=== PATIENT | female | born 1960 | race Caucasian/White ===

== ENCOUNTER 2020-07-01 08:00 | Outpatient (CLI) | payer BC ==
--- NOTE | 2020-07-01 10:43 | XRAY Report ---
PROCEDURE: Finger(s) RT INDICATIONS: PAIN IN FINGER OF RIGHT HAND TECHNIQUE: AP hand, 2 views of the fifth finger(s) acquired. COMPARISON: None FINDINGS: Bones: No fractures or dislocations. No suspicious bony lesions. Soft tissues: No suspicious soft tissue calcifications. IMPRESSION: No fifth finger fracture or dislocation. No bony erosive changes. No gross soft tissue abnormality. Reviewed by: Adonis Zacarias MD on 07/01/2020 10:42 AM [facility] Approved by: Adonis Zacarias MD on 07/01/2020 10:42 AM [facility] Station ID: [id number]
== END 2020-07-01 23:59 | disposition home or self-care (01) ==
LOC: DI.S 08:00
PROVIDERS: ATTEND Physician Assistant Medical
DX: M79.644 Pain in right finger(s) (principal)

== ENCOUNTER 2020-07-15 13:45 | Outpatient (CLI) | payer BC, OTHER ==
--- NOTE | 2020-07-15 15:57 | XRAY Report ---
PROCEDURE: Finger(s) RT INDICATIONS: PAIN IN FINGER RIGHT HAND TECHNIQUE: AP hand, 3 views of the the finger(s) acquired. COMPARISON: None FINDINGS: Bones: No fractures or dislocations. No suspicious bony lesions. Soft tissues: No suspicious soft tissue calcifications. IMPRESSION: No visualized acute fracture or dislocation. However, occult injury cannot be excluded. Recommend lux rt interval imaging follow-up in 7-10 days as clinically indicated for additional evaluation. Reviewed by: Kristin Grande MD on 07/15/2020 3:56 PM PDT Approved by: Kristin Grande MD on 07/15/2020 3:56 PM PDT Station ID: [id number]
== END 2020-07-15 23:59 | disposition home or self-care (01) ==
LOC: DI.S 13:45
PROVIDERS: ATTEND Physician Assistant
DX: M79.644 Pain in right finger(s) (principal)

== ENCOUNTER 2020-10-11 14:02 | Outpatient (CLI) | payer OTHER | END 2020-10-11 14:03 | disposition home or self-care (01) | LOC: LAB.S 14:02 | PROVIDERS: ATTEND Obstetrics & Gynecology | DX: Z01.84 Encounter for antibody response examination (principal) | CPT/HCPCS: 36415; 86769 ==

== ENCOUNTER 2021-08-28 14:18 | Outpatient (CLI) | payer OTHER ==
--- NOTE | 2021-08-28 16:45 | DEXA Report ---
PROCEDURE: Dexa Spine and/or Hip INDICATIONS: OSTEOPOROSIS SCREENING TECHNIQUE: Dual energy x-ray absorptiometry (DXA) was performed on a [employer] System. Regions measur ed are the AP Spine, femoral neck, and if needed forearm. COMPARISON: None. FINDINGS: Lumbar Spine: Bone Mineral Density 1.215 g/cm/cm,T score 0.3, normal Left Hip: Bone Mineral Density 1.030 g/cm/cm,T score 0.2, normal Left Femoral Neck: Bone Mineral Density 0.909 g/cm/cm, T score -0.9, normal (T score greater or equal to -1.0: NORMAL) (T score from -1.1 to -2.4: OSTEOPENIA) (T score less than or equal to -2.5 to: OSTEOPOROSIS) Impression: Normal bone mineral density Patients with diagnosis of osteoporosis or osteopenia should have regular bone mineral density assess ment. For those eligible for Medicare, routine testing is allowed once every 2 years. Testing frequ ency can be increased for patients who have rapidly progressing disease or for those who are receivin g medical therapy to restore bone mass. Reviewed by: Wilfrido Mckeon on 08/28/2021 4:44 PM PDT Approved by: Wilfrido Mckeon on 08/28/2021 4:44 PM PDT Station ID: [id number]
== END 2021-08-28 14:19 | disposition home or self-care (01) ==
LOC: DI 14:18
PROVIDERS: ATTEND Obstetrics & Gynecology
DX: Z13.820 Encounter for screening for osteoporosis (principal); Z79.890 Hormone replacement therapy; Z78.0 Asymptomatic menopausal state

== ENCOUNTER 2021-09-06 14:06 | Outpatient (CLI) | payer OTHER ==
--- NOTE | 2021-09-18 11:45 | Mammography Report ---
BILATERAL DIGITAL SCREENING MAMMOGRAM 3D/2D WITH EXAGGERATED CC: 09/06/2021 CLINICAL: Routine screening. Comparison is made to exams dated: 09/30/2019 mammogram, 07/11/2017 mammogram, 10/15/2014 mammogram, and 02/23/2013 mammogram - [facility]. The tissue of both breasts is heterogeneously dense . This may lower the sensitivity of mammography. No significant masses, calcifications, or other findings are seen in either breast. There has been no significant interval change. IMPRESSION: NEGATIVE There is no mammographic evidence of malignancy. A 1 year screening mammogram is recommended. This exam was interpreted at Station ID: [id number]. NOTE: For mammograms, a report in lay terms will be sent to the patient. Approximately 15% of breast malignancies will not be visualized mammographically. In the management of a palpable breast mass, a negative mammogram must not discourage biopsy of a clinically suspicious lesion. Electronically Signed By: Sampson Fitzgerald M.D. aty/penrad:09/15/2021 07:51:31 ACR BI-RADS Category 1: Negative 3341F PARENCHYMAL PATTERN: (D) - The breast(s) demonstrate(s) heterogeneously dense fibroglandular liban hennessy. BI-RADS CATEGORY: (1) - 1 RECOMMENDATION: (ANNUAL) - Recommend routine annual screening mammography. [id number] 1 year screening LATERALITY: (B)
== END 2021-09-06 14:07 | disposition home or self-care (01) ==
LOC: DI.S 14:06
DX: Z12.31 Encounter for screening mammogram for malignant neoplasm of breast (principal)

== ENCOUNTER 2022-08-27 19:51 | Emergency (ER) | payer OTHER ==
--- NOTE | 2022-08-27 21:43 | ED Physician Documentation ---
History of Present Illness - Stated complaint Stated Complaint: HIGH BLOOD PRESSURE - Chief complaint Chief Complaint: General - History obtained from History obtained from: Patient - Additonal information Additional information: HPI from patient. Patient says she woke up this morning with "red spot in my eye" (per patient), right eye. Denies trauma, denies pain, denies visual changes. Because she was not having any symptoms, she did not worry about this initially, but later in the day, she looked up possible causes of this on the internet and found that high blood pressure was amongst the causes. Thus, she began taking her blood pressure with a home BP cuff and had readings staring in 150s SBP, eventually increasing to 180s and tonight 200s range. She says her SBP tends to run 140s at its highest and so today's/tonight's blood pressure readings alarmed her. She became increasingly worried about health risks related to hypertension, specifically stroke (has family history) and thus decided to come to ED for evaluation. Patient says that her friend came to the house this evening to help assess the situation and told patient to mention that patient drinks alcohol on a regular basis. Patient has no h/o high blood pressure. She says she used to measure her blood pressure until approximately 2-3 months ago. Patient denies ACEVEDO, weakness, numbness, chest pain, dyspnea. HPI and ROS indicate that patient is asymptomatic Review of Systems Eyes: denies: Loss of vision, Decreased vision GI: reports: Nausea Neurologic: reports: Reviewed and negative PD PAST MEDICAL HISTORY - Past Medical History Past Medical History: No - Present Medications Home Medications: Ambulatory Orders Medication Instructions Recorded Confirmed amLODIPine [Norvasc] 5 mg PO DAILY #14 tablet 08/27/22 estradioL [Estradiol (Once Weekly)] 1 patch TOP 08/27/22 - Allergies Allergies/Adverse Reactions: Allergies Allergy/AdvReac Type Severity Reaction Status Date / Time No Known Drug Allergies Allergy Verified 08/27/22 20:24 PD ED PE NORMAL - Vitals Vital signs reviewed: Yes - General General: Alert and oriented X 3, No acute distress, Well developed/nourished - HEENT HEENT: PERRL, EOMI - Cardiac Cardiac: RRR, No murmur - Respiratory Respiratory: No respiratory distress, Clear bilaterally - Neuro Neuro: Alert and oriented X 3, functional mental disability teacher 2-12 intact, No motor deficit, No sensory deficit, Normal speech Eye Opening: Spontaneous Motor: Obeys Commands Verbal: Oriented GCS Score: 15 PD ED PE EXPANDED - HEENT HEENT Visual: 1 - bruising (small, focal subcutaneous hemorrhage) Results - Vitals Vitals: Oxygen O2 Source Room air PD Medical Decision Making - ED course Complexity details: considered differential, d/w patient ED course: Presents with right subconjunctival hemorrhage and high blood pressure readings. Her BP readings at home are high as are her readings in ED (with few readings in ED in a borderline-elevated range before trending back up into hypertensive ranges). She is asymptomatic (sign of subconjunctival hemorrhage is likely unrelated to HTN). Emergent testing is not indicated at this time. We had discussion regarding approach to asymptomatic high blood pressure readings in ED , and shared decision making resulted in plan to d/c home with rx for low-dose (5mg QD) amlodipine rx to her pharmacy of choice with instructions (both verbal and typed into her d/c instructions) regarding when to start the medication (for persistent readings in hypertensive range). I explained to patient that the typical approach in this situation would be for her to record her blood pressures 2-3 times per day and to follow up with PMD within 2 weeks for reevaluation and advisement regarding starting on an anti-hypertensive, and she expresses understanding of this. Departure - Departure Disposition: 01 Home, Self Care Clinical Impression: Subconjunctival hemorrhage, Hypertension Condition: Good Instructions: ED Eye Injury Subconj Hemorrhage Prescriptions: amLODIPine [Norvasc] 5 mg PO DAILY #14 tablet Comments: A prescription for an antihypertensive medication (amlodipine) has been electr onically submitted to the [facility] pharmacy in [place]. As we discussed, your blood pressure readings were elevated in the emergency department although you had a few readings that were approaching normal numbers without specific intervention. Typically, this situation (asymptomatic hypertension, or elevated blood pressure without symptoms in the emergency department) does not warrant initiation of antihypertensive medication. However, considering the readings you are having at home, and the persistence of mostly elevated blood pressure readings in the emergency department, it is reasonable to provide you with the prescription for the blood pressure medication. My recommendation is to hold off on starting the blood pressure medication unless you have persistent elevated readings as follows: Systolic (upper number) 150 or higher and/or diastolic (lower number) of 90 or higher on 3 or more readings that are at least 20 minutes apart. The prescription is only for a 2-week supply, as you should follow-up with your primary care provider within that timeframe for reevaluation. As we discussed, your alcohol use certainly can contribute to hypertension (as well as many other medical problems). It is, of course, advisable to drink on neither a heavy nor regular basis and, for those who find this challenging, to quit alcohol entirely. Discharge Date/Time: 08/27/22 22:29
[2022-08-27 22:14] VITALS: BP 166/76
== END 2022-08-27 22:29 | disposition home or self-care (01) ==
LOC: ED 19:51
DX: H11.31 Conjunctival hemorrhage, right eye (principal); I10 Essential (primary) hypertension
CPT/HCPCS: 99281; 99283

== ENCOUNTER 2022-12-12 08:00 | Outpatient (CLI) | payer OTHER ==
--- NOTE | 2022-12-12 16:54 | XRAY Report ---
PROCEDURE: Chest 2 View X-Ray INDICATIONS: PNEUMONIA, LEFT LOWER LOBE TECHNIQUE: 2 views of the chest were acquired. COMPARISON: None. FINDINGS: Surgical changes and devices: None. Lungs and pleura: Patchy airspace opacities are seen in the left lower lung zone silhouetting the le ft heart border, likely within the lingula or anterior left lower lobe. No pleural effusion or pneumo thorax. Mediastinum: Mediastinal contours appear normal. Heart size is normal. Bones and chest wall: No suspicious bony lesions. Overlying soft tissues appear unremarkable. IMPRESSION: Patchy left lower lung zone opacities are suspicious for pneumonia. Recommend radiographic follow-up to resolution. Reviewed by: Luis Buitrago MD on 12/12/2022 4:53 PM PDT Approved by: Luis Buitrago MD on 12/12/2022 4:53 PM PDT Station ID: [id number]
== END 2022-12-12 23:59 | disposition home or self-care (01) ==
LOC: DI.S 08:00
PROVIDERS: ATTEND Physician Assistant
DX: J18.9 Pneumonia, unspecified organism (principal)

== ENCOUNTER 2023-01-10 15:07 | Outpatient (CLI) | payer OTHER ==
--- NOTE | 2023-01-10 17:46 | XRAY Report ---
PROCEDURE: Chest 2 View X-Ray INDICATIONS: CHEST XRAY 2V TECHNIQUE: 2 views of the chest were obtained. COMPARISON: None. FINDINGS: Surgical changes and devices: None. Lungs and pleura: No pleural effusions or pneumothorax. Lungs are clear. Mediastinum: Mediastinal contours appear normal. Heart size is normal. Bones and chest wall: No suspicious bony lesions. Overlying soft tissues appear unremarkable. IMPRESSION: Normal two-view chest x-ray Reviewed by: Sohail Diez MD on 01/10/2023 4:45 PM [facility] Approved by: Sohail Diez MD on 01/10/2023 4:45 PM [facility] Station ID: [id number]
== END 2023-01-10 15:08 | disposition home or self-care (01) ==
LOC: DI.S 15:07
PROVIDERS: ATTEND Internal Medicine
DX: J18.9 Pneumonia, unspecified organism (principal)

== ENCOUNTER 2023-07-12 14:05 | Outpatient (CLI) | payer OTHER ==
--- NOTE | 2023-07-12 15:27 | XRAY Report ---
PROCEDURE: Foot 3+V LT INDICATIONS: LEFT HEEL PAIN TECHNIQUE: 3 views of the foot were acquired. COMPARISON: None. FINDINGS: Bones: No fractures or dislocations. No suspicious bony lesions. First digit osteotomy. Plantar ca lcaneal enthesophyte. Soft tissues: No tibiotalar joint effusion. Achilles tendon appears normal. IMPRESSION: Plantar calcaneal enthesophyte. Reviewed by: Michael Campos MD on 07/12/2023 3:26 PM PDT Approved by: Michael Campos MD on 07/12/2023 3:26 PM PDT Station ID: [id number]
== END 2023-07-12 14:06 | disposition home or self-care (01) ==
LOC: DI 14:05
PROVIDERS: ATTEND Family Medicine
DX: M77.32 Calcaneal spur, left foot (principal)

== ENCOUNTER 2023-10-28 09:14 | Outpatient (CLI) | payer OTHER ==
--- NOTE | 2023-10-29 09:03 | Mammography Report ---
BILATERAL DIGITAL SCREENING MAMMOGRAM 3D/2D: 10/28/2023 CLINICAL: Routine screening. Comparison is made to exams dated: 09/30/2019 mammogram - [facility], 09/06/2021 mammogram - [facility], 07/11/2017 mammogram, and 10/15/2014 mammogram - [facility]. Both breasts are heterogeneously dense, which may obscure small masses (category c / 51-75% glandular tissue). No significant masses, calcifications, or other findings are seen in either breast. There has been no significant interval change. IMPRESSION: NEGATIVE There is no mammographic evidence of malignancy. A 1 year screening mammogram is recommended. Based on the Tyrer Cuzick model (a risk assessment model) the patient's lifetime risk is 6.8% and her 10 year risk is 3.1%. According to the ACR, ACS, and NCCN guidelines, an annual breast MRI exam darion g with mammogram is recommended if the patient's lifetime risk is 20% or greater. This exam was interpreted at Station ID: [id number]. NOTE: For mammograms, a report in lay terms will be sent to the patient. Approximately 15% of breast malignancies will not be visualized mammographically. In the management of a palpable breast mass, a negative mammogram must not discourage biopsy of a clinically suspicious lesion. Electronically Signed By: Sampson [email or web address]/giovana:10/28/2023 09:55:39 letter sent: No_Letter ACR BI-RADS Category 1: Negative 3341F PARENCHYMAL PATTERN: (D) - The breast(s) demonstrate(s) heterogeneously dense fibroglandular liban hennessy. BI-RADS CATEGORY: (1) - 1 RECOMMENDATION: (ANNUAL) - Recommend routine annual screening mammography. [id number] 1 year screening LATERALITY: (B)
== END 2023-10-28 09:15 | disposition home or self-care (01) ==
LOC: DI 09:14
PROVIDERS: ATTEND Naturopath
DX: Z12.31 Encounter for screening mammogram for malignant neoplasm of breast (principal); R92.333 Mammographic heterogeneous density, bilateral breasts